=== PATIENT | female | born 1960 | race Caucasian/White ===

== ENCOUNTER 2016-12-27 18:47 | Emergency (ER) | payer MEDICARE, OTHER ==
[~2016-12-27 18:47] MED LIST: CLIN1CAP6 PO; DICL75 PO; FURO1TAB93 PO; GABA100C2 PO; HYDR-3535 PO; NUED20CA PO; PROT40TA PO
[2016-12-27 19:12] VITALS: BP 121/68; PULSE 85; RESP 16; TEMP 99.2; O2SAT 99
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
[2016-12-27] MEDS ORDERED: ONDANSETRON HCL 4 MG/2 ML VIAL IV PUSH ONE (19:30)
[2016-12-27] MEDS ORDERED: SODIUM CHLOR 0.9% 1000 ML INJ 1,000 ML IV ONE (19:30)
[2016-12-27] MEDS ORDERED: ACETAMINOPHEN 325 MG TAB PO ONE (19:30)
[2016-12-27] MEDS ORDERED: FURO1TAB62 PO (19:36)
[2016-12-27] MEDS ORDERED: GABA300C5 PO (19:36)
[2016-12-27] MEDS ORDERED: POTA10CA PO (19:36)
[2016-12-27] MEDS ORDERED: PANT20 PO (19:36)
[2016-12-27] MEDS ORDERED: CRAN600T PO (19:36)
[2016-12-27] MEDS ORDERED: NUED20CA PO (19:36)
[2016-12-27 20:01] LABS: AUTOMATED NEUTROPHIL # 6.2 TH/MM3 (1.8-7.7); BASOPHIL # 0.1 TH/MM3 (0-0.2); EOSINOPHIL # 0.1 TH/MM3 (0-0.4); EOSINOPHIL % 1.3 % (0.0-4.0); HEMATOCRIT 35.7 % (35.0-46.0); HEMO FLAGS DIFF FINAL; LYMPH % 10.4 % (9.0-44.0); LYMPHOCYTE # 0.8 TH/MM3 (1.0-4.8); MEAN CORPUSCULAR HEMOGLOBIN 32.3 PG (27.0-34.0); MEAN CORPUSCULAR HGB CONC 34.4 % (32.0-36.0); MONO % 7.7 % (0.0-8.0); NEUT % 79.6 % (16.0-70.0); PLATELET COUNT 144 TH/MM3 (150-450); RED CELL DISTRIBUTION WIDTH 14.8 % (11.6-17.2); WHITE BLOOD COUNT 7.7 TH/MM3 (4.0-11.0)
[2016-12-27 20:28] LABS: ANION GAP 7 MEQ/L (5-15); AST (GOT) 16 U/L (15-37); BICARBONATE 24.8 MEQ/L (21.0-32.0); BLOOD UREA NITROGEN 12 MG/DL (7-18); CHLORIDE 112 MEQ/L (98-107); GLOMERULAR FILTRATION RATE 84 ML/MIN (>89); POTASSIUM 3.2 MEQ/L (3.5-5.1); SODIUM (NA) 144 MEQ/L (136-145)
[2016-12-27 20:32] LABS: ALKALINE PHOSPHATASE 143 U/L (45-117); ALT (GPT) 22 U/L (10-53); TOTAL BILIRUBIN ADULT 0.5 MG/DL (0.2-1.0)
[2016-12-27 21:36] VITALS: BP 125/60; PULSE 67; RESP 16; O2SAT 100
[2016-12-27] MEDS ORDERED: POTASSIUM CHLORIDE 25 MEQ EFFERVESCENT TAB PO ONE (22:00)
[2016-12-27 23:46] VITALS: BP 135/67; PULSE 52; RESP 16; TEMP 97.5; O2SAT 99
[2016-12-28 01:00] LABS: AMPHETAMINE, URINE NEG (NEG); BARBITURATES, URINE POS (NEG); COCAINE, URINE POS (NEG)
[2016-12-28] MEDS ORDERED: IBUPROFEN 600 MG TAB PO ONE (05:45)
[2016-12-28 08:24] VITALS: BP 150/82; PULSE 66; RESP 18; O2SAT 100
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
[2016-12-28 14:33] VITALS: BP 127/64
== END 2016-12-28 14:33 | disposition home or self-care (01) ==
LOC: NEPA 18:47
DX: F14.94 Cocaine use, unspecified with cocaine-induced mood disorder (principal); F13.94 Sedative, hypnotic or anxiolytic use, unspecified with sedative, hypnotic or anxiolytic-induced mood disorder; F48.2 Pseudobulbar affect; F17.210 Nicotine dependence, cigarettes, uncomplicated; Z89.512 Acquired absence of left leg below knee; R51 Headache
CPT/HCPCS: 80053; 80307; 85025; 96361; 96374; 99283; J2405; J7030